=== PATIENT | male | born 1995 | race African-American/Black ===

== ENCOUNTER 2017-08-02 08:28 | Emergency (ER) | payer MEDICAID, OTHER ==
[~2017-08-02] VITALS: Ht 195.6 cm; Wt 84.0 kg
[~2017-08-02 08:28] MED LIST: ALBU17AE26; [UNRECOGNIZED DRUG - OTHER]
[2017-08-02] MEDS ORDERED: MAGNESIUM 2 G PREMIX 50 ML IV STA (09:02)
[2017-08-02] MEDS ORDERED: METHYLPREDNISOLONE SOD SUCC 125 MG/2 ML VIAL IV STA (09:02)
[2017-08-02] MEDS ORDERED: ALBUTEROL (0.083%) 2.5MG/3ML NEB HHN STA ×2 (09:02→12:01)
[2017-08-02] MEDS ORDERED: IPRATROPIUM BROMIDE (0.02%) 0.5MG/2.5ML NEB HHN STA ×2 (09:02→12:01)
[2017-08-02 13:19] VITALS: BP 127/72
== END 2017-08-02 13:20 | disposition home or self-care (01) ==
LOC: ER 09:17
DX: J45.901 Unspecified asthma with (acute) exacerbation (principal); Z88.6 Allergy status to analgesic agent; F12.90 Cannabis use, unspecified, uncomplicated; Z87.891 Personal history of nicotine dependence
CPT/HCPCS: 94644; 94645; 96365; 96366; 96375; 99285; J2930; J3475; J7611; Z7610; 94640

== ENCOUNTER 2017-08-28 23:55 | Inpatient (IN) | payer MEDICAID ==
[~2017-08-28] VITALS: Ht 195.6 cm; Wt 83.9 kg
[2017-08-29] MEDS ORDERED: METHYLPREDNISOLONE SOD SUCC 125 MG/2 ML VIAL IV STA (00:15)
[2017-08-29] MEDS ORDERED: ALBUTEROL (0.083%) 2.5MG/3ML NEB HHN STA ×2 (00:15→02:34)
[2017-08-29] MEDS ORDERED: MAGNESIUM 2 G PREMIX 50 ML IV STA (00:15)
[2017-08-29] MEDS ORDERED: IPRATROPIUM BROMIDE (0.02%) 0.5MG/2.5ML NEB HHN STA ×2 (00:15→02:34)
[2017-08-29] MEDS ORDERED: SODIUM CHLORIDE 0.9% 1,000 ML IV ONE (00:30)
[2017-08-29] MEDS ORDERED: IPRATROPIUM/ALBUTEROL 0.5-3(2.5)MG/3ML NEB HHN PRN (08:15)
[2017-08-29 14:44] LABS: BASOPHILS % 0.3 % (0.0-2.0); HEMATOCRIT. 41.5 % (42.0-52.0); HEMOGLOBIN. 14.2 g/dL (14.0-18.0); LYMPHOCYTES % 19.7 % (20.0-50.0); MEAN CORPUSCULAR HEMOGLOBIN 29.2 pg (28.0-32.0); MEAN CORPUSCULAR VOLUME 85.6 fL (80.0-94.0); MEAN PLATELET VOLUME 7.5 fl (7.4-10.4); MONOCYTES % 9.4 % (2.0-8.0); NEUTROPHILS % 70.6 % (40.0-76.0); PLATELET 183 x1000/uL (130-400); RED BLOOD CELL COUNT 4.86 mill/uL (4.7-6.1)
[2017-08-29 15:00] LABS: CHLORIDE 107 mEq/L (98-107)
[2017-08-29 15:01] LABS: CARBON DIOXIDE 26 mEq/L (21-32)
[2017-08-29] MEDS: METHYLPREDNISOLONE SOD SUCC 40 MG/ML VIAL IV SCH (15:55)
[2017-08-29 16:00] VITALS: BP 106/54
[2017-08-29 16:32] VITALS: BP 106/54
[2017-08-29] MEDS ORDERED: P20 PO (18:48)
[2017-08-29 20:00] VITALS: BP 109/68
[2017-08-29] MEDS: IPRATROPIUM/ALBUTEROL 0.5-3(2.5)MG/3ML NEB HHN SCH ×2 (20:00→20:28)
[2017-08-29] MEDS: BUDESONIDE 0.5MG/2ML NEB HHN SCH ×2 (20:28→23:45)
[2017-08-29] MEDS ORDERED: ACETAMINOPHEN 325MG TABLET PO PRN (20:45)
[2017-08-30] VITALS: BP_SYST 107; BP_SYST 109; BP_DIAS 62; BP_DIAS 76
[2017-08-30] MEDS: IPRATROPIUM/ALBUTEROL 0.5-3(2.5)MG/3ML NEB HHN SCH ×4 (00:37→11:07)
[2017-08-30] MEDS: METHYLPREDNISOLONE SOD SUCC 40 MG/ML VIAL IV SCH ×2 (03:20→11:14)
[2017-08-30 08:00] VITALS: BP 99/57
[2017-08-30] MEDS: BUDESONIDE 0.5MG/2ML NEB HHN SCH (08:04)
[2017-08-30] MEDS ORDERED: ALBU6.7H INH (09:08)
[2017-08-30 10:41] VITALS: BP 99/57
[2017-08-30 12:00] VITALS: BP 95/56
== END 2017-08-30 12:20 | disposition home or self-care (01) | DRG 133 ==
LOC: ER 23:55 → 7WST 08-29 03:32 → EDBEDREQ 08-29 03:39 → EDBEDREQTM 08-29 03:39 → EDBEDREQSVC 08-29 07:31 → CANRESERV 08-29 12:42 → ENRESERV 08-29 12:42 → EDBEDREQSVC 08-29 14:03 → ENRESERV 08-29 14:43
PROVIDERS: ADMIT Internal Medicine; ATTEND Internal Medicine
PROC: 5A09357 Assistance with Respiratory Ventilation, Less than 24 Consecutive Hours, Continuous Positive Airway Pressure (ICD-10-PCS; principal; 2017-08-29)
DX: J96.00 Acute respiratory failure, unspecified whether with hypoxia or hypercapnia (principal); J45.901 Unspecified asthma with (acute) exacerbation; Z87.891 Personal history of nicotine dependence; Z88.6 Allergy status to analgesic agent; Z79.899 Other long term (current) drug therapy
CPT/HCPCS: 36415; 71045; 80053; 85025; 94640; 94644; 94660; 96365; 96366; 96375; 96376; 99291; J2920; J2930; J3475; J7030; J7611; J7620; J7626

== ENCOUNTER 2017-11-10 23:42 | Emergency (ER) | payer MEDICAID, OTHER ==
[~2017-11-10] VITALS: Ht 185.4 cm; Wt 96.0 kg
[~2017-11-10 23:42] MED LIST changes: +ALBU6.7H INH; +P20 PO
[2017-11-11] MEDS ORDERED: MAGNESIUM 2 G PREMIX 50 ML IV STA (03:25)
[2017-11-11] MEDS ORDERED: ALBUTEROL (0.083%) 2.5MG/3ML NEB HHN STA (03:25)
[2017-11-11] MEDS ORDERED: METHYLPREDNISOLONE SOD SUCC 125 MG/2 ML VIAL IV STA (03:25)
[2017-11-11] MEDS ORDERED: IPRATROPIUM BROMIDE (0.02%) 0.5MG/2.5ML NEB HHN STA (03:25)
[2017-11-11 08:01] VITALS: BP 127/72
== END 2017-11-11 08:26 | disposition home or self-care (01) ==
LOC: ER 11-11 03:23
DX: J45.901 Unspecified asthma with (acute) exacerbation (principal); F12.10 Cannabis abuse, uncomplicated; Z87.891 Personal history of nicotine dependence; Z88.6 Allergy status to analgesic agent
CPT/HCPCS: 71045; 94644; 96365; 96366; 96375; 99285; J2930; J3475; J7611; Z7610

== ENCOUNTER 2018-06-26 20:48 | Emergency (ER) | payer OTHER ==
[~2018-06-26] VITALS: Ht 185.4 cm; Wt 86.0 kg
[2018-06-26] MEDS ORDERED: SODIUM CHLORIDE 0.9% 1,000 ML IV ONE (21:03)
[2018-06-26] MEDS ORDERED: PREDNISONE 20MG TABLET PO ONE (21:15)
[2018-06-26] MEDS ORDERED: ALBUTEROL (0.083%) 2.5MG/3ML NEB HHN ONE (21:15)
[2018-06-26 21:35] LABS: BASOPHILS % 0.9 % (0.0-2.0); EOSINOPHILS % 11.3 % (0.0-5.0); HEMATOCRIT. 45.9 % (42.0-52.0); HEMOGLOBIN. 15.1 g/dL (14.0-18.0); MEAN CORPUSCULAR HEMOGLOBIN 28.6 pg (28.0-32.0); MEAN CORPUSCULAR VOLUME 86.8 fL (80.0-94.0); MEAN PLATELET VOLUME 7.4 fl (7.4-10.4); MONOCYTES % 11.6 % (2.0-8.0); NEUTROPHILS % 27.2 % (40.0-76.0); PLATELET 163 x1000/uL (130-400); RED BLOOD CELL COUNT 5.29 mill/uL (4.7-6.1); RED CELL DISTRIBUTION WIDTH 12.8 % (11.6-14.6)
[2018-06-26 21:40] LABS: CHLORIDE 108 mEq/L (98-107)
[2018-06-26 21:51] LABS: ETHANOL BLOOD < 10 mg/dL
[2018-06-27 00:02] VITALS: BP 120/73
== END 2018-06-27 00:10 | disposition home or self-care (01) ==
LOC: ER 20:48
DX: J45.901 Unspecified asthma with (acute) exacerbation (principal)
CPT/HCPCS: 36415; 71045; 80053; 85025; 94640; 99285; G0482; J7030; J7512; J7611